=== PATIENT | male | born 1995 | race Caucasian/White ===

== ENCOUNTER 2016-04-10 07:53 | Emergency (ER) | payer OTHER ==
[~2016-04-10] VITALS: Ht 188 cm; Wt 76.0 kg
[2016-04-10 08:02] VITALS: Ht 188 cm; Wt 76.0 kg
[2016-04-10] MEDS ORDERED: ACETAMINOPHEN 500 MG TAB PO STA (08:27)
[2016-04-10] MEDS ORDERED: LIDOCAINE 1% (MDV) 20 ML INJ SC ONE (08:30)
[2016-04-10] MEDS ORDERED: DIPHTH/TET/ACEL PERTUSS (ADULT) 0.5 ML VIAL IM* ONE (08:30)
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
[2016-04-10] MEDS ORDERED: CEPH-443 PO (09:04)
[2016-04-10] MEDS ORDERED: IBUP800T25 PO (09:04)
== END 2016-04-10 09:11 | disposition home or self-care (01) ==
LOC: FTE 07:53
DX: S61.214A Laceration without foreign body of right ring finger without damage to nail, initial encounter (principal); F17.210 Nicotine dependence, cigarettes, uncomplicated; W22.8XXA Striking against or struck by other objects, initial encounter; Y92.9 Unspecified place or not applicable; Z23 Encounter for immunization
CPT/HCPCS: 90471; 90715